=== PATIENT | female | born 1980 | race Caucasian/White ===

== ENCOUNTER 2017-12-23 06:08 | Inpatient (IN) ==
[2017-12-23] MEDS ORDERED: LIDOCAINE 1% (10mg/ml) 2mL INJ PF SDV ID PRN (16:05)
[2017-12-23] MEDS ORDERED: CARBOPROST 250 MCG/ML INJECTION IM PRN (16:05)
[2017-12-23] MEDS ORDERED: SALINE FLUSH 10ml SYRINGE IV PRN ×2 (16:05→17:50)
[2017-12-23] MEDS ORDERED: METHYLERGONOVINE 0.2 MG/ML INJECTION IM PRN (16:05)
[2017-12-23] MEDS ORDERED: CALCIUM CARBONATE Chewable 500mg TABLET PO PRN (16:05)
[2017-12-23] MEDS ORDERED: ACETAMINOPHEN 500 MG TABLET PO PRN (16:05)
[2017-12-23] MEDS ORDERED: MAG-AL + SIM ORAL LIQUID 30ml PO PRN (16:05)
[2017-12-23] MEDS ORDERED: INSULIN NPH/ASPART 70/30 MIX INJECTION SQ SCH (17:30)
[2017-12-23] MEDS ORDERED: DINOPROSTONE 10 MG VAGINAL INSERT VG ONE ×2 (17:33→17:50)
[2017-12-23 17:49] VITALS: BMI 32.6
[2017-12-23] MEDS ORDERED: TERBUTALINE 1 MG/ML VIAL SQ PRN (17:50)
[2017-12-23] MEDS ORDERED: ZOLPIDEM 10 MG TABLET PO PRN (17:53)
[2017-12-23] MEDS: METFORMIN 1,000 MG TABLET PO SCH (19:12)
[2017-12-24] MEDS ORDERED: CARBOPROST 250 MCG/ML INJECTION IM PRN (05:46)
[2017-12-24] MEDS ORDERED: OXYTOCIN DRIP 30 UNIT/500 ML ML IV PRN (05:46)
[2017-12-24] MEDS ORDERED: ACETAMINOPHEN 500 MG TABLET PO PRN ×2 (05:46→21:04)
[2017-12-24] MEDS ORDERED: CALCIUM CARBONATE Chewable 500mg TABLET PO PRN ×2 (05:46→21:04)
[2017-12-24] MEDS ORDERED: LIDOCAINE 1% (10mg/ml) 2mL INJ PF SDV ID PRN (05:46)
[2017-12-24] MEDS ORDERED: MAG-AL + SIM ORAL LIQUID 30ml PO PRN (05:46)
[2017-12-24] MEDS ORDERED: D5LR 1,000 ML IV PRN (05:46)
[2017-12-24] MEDS ORDERED: LR 1,000 ML IV PRN (05:46)
[2017-12-24] MEDS ORDERED: METHYLERGONOVINE 0.2 MG/ML INJECTION IM PRN (05:46)
[2017-12-24] MEDS ORDERED: AMPICILLIN 2 GM in NS 100 ML IV ONE (06:00)
[2017-12-24] MEDS: D5LR 1,000 ML IV SCH ×2 (06:22→17:59)
[2017-12-24] MEDS: LR 1,000 ML IV PRN ×3 (06:23→18:35)
[2017-12-24] MEDS ORDERED: INSULIN NPH/ASPART 70/30 MIX INJECTION SQ SCH (08:00)
[2017-12-24] MEDS: METFORMIN 1,000 MG TABLET PO SCH ×3 (08:34→23:07)
[2017-12-24] MEDS ORDERED: ROPIVACAINE 1% 10MG/ML INJ 200 MG, SUFentanil 50 MCG in NS 80 ML EPI ONE (11:00)
--- NOTE | 2017-12-24 11:21 | Anesthesia Preoperative Report ---
Anesthesia Epidural/Spinal Rec - Date and Time Date: 12/24/17 Procedure: Labor Epidural Plan: Epidural (pt unsure if wants epidural at this time) - Vital Signs Vital Signs: Temperature 98.0 F 12/23/17 23:25 Pulse Rate 68 12/23/17 23:25 Respiratory Rate 18 12/23/17 23:25 Blood Pressure 132/68 12/23/17 23:25 /Para: P:0 - Medictaions & Allergies Inpatient Medications: Current Medications Acetaminophen (Tylenol) 500 - 1,000 mg PO Q4H PRN PRN Reason: Pain Acetaminophen (Tylenol) 500 - 1,000 mg PO Q4H PRN PRN Reason: Pain Al Hydroxide/Mg Hydroxide (Maalox Plus) 30 ml PO Q3H PRN PRN Reason: Indigestion Al Hydroxide/Mg Hydroxide (Maalox Plus) 30 ml PO Q3H PRN PRN Reason: Indigestion Calcium Carbonate (Tums) 500 - 1,000 mg PO Q2H PRN PRN Reason: Indigestion Calcium Carbonate (Tums) 500 - 1,000 mg PO Q2H PRN PRN Reason: Indigestion Carboprost Tromethamine (Hemabate) 250 mcg IM O PRN PRN Reason: .Downtime Carboprost Tromethamine (Hemabate) 250 mcg IM O PRN PRN Reason: .Downtime Diphenhydramine HCl (Benadryl) 50 mg PO HS PRN PRN Reason: Sleep Last Admin: 12/23/17 23:41 Dose: 50 mg Lactated Ringer's (Lactated Ringers) 1,000 mls @ 999 mls/hr IV .Q1H1M PRN Last Admin: 12/24/17 06:23 Dose: 999 mls/hr Ampicillin Sodium 1 gm/ Sodium (Chloride) 50 mls @ 200 mls/hr IV Q4H [facility] Dextrose/Lactated Ringer's (Dextrose 5%-Lactated Ringers) 1,000 mls @ 125 mls/ hr IV .Q8H PRN PRN Reason: Labor Dextrose/Lactated Ringer's (Dextrose 5%-Lactated Ringers) 1,000 mls @ 125 mls/ hr IV .Q8H M[facility]A Last Admin: 12/24/17 06:22 Dose: 125 mls/hr Lactated Ringer's (Lactated Ringers) 1,000 mls @ 999 mls/hr IV .Q1H1M PRN Oxytocin (Pitocin Drip) 30 unit in 500 mls @ 2 mls/hr IV .Q24H PRN; Protocol PRN Reason: Induction/Augmentation Last Admin: 12/24/17 06:22 Dose: 2 mls/hr Insulin Aspart (Novolog Mix 70-30) 21 unit SQ WB [facility] Insulin Aspart (Novolog Mix 70-30) 27 unit SQ WS [facility] Last Admin: 12/23/17 19:13 Dose: 27 unit Lidocaine HCl (Xylocaine-Mpf 1% Vial) 0.2 mg ID O PRN PRN Reason: IV Start Lidocaine HCl (Xylocaine-Mpf 1% Vial) 0.2 mg ID O PRN PRN Reason: IV Start Metformin HCl (Glucophage) 1,000 mg PO BIDWM [facility]A Last Admin: 12/24/17 08:34 Dose: 1,000 mg Methylergonovine Maleate (Methergine) 0.2 mg IM O PRN Methylergonovine Maleate (Methergine) 0.2 mg IM O PRN Misoprostol (Cytotec) 800 mcg [place] ONCE PRN Misoprostol (Cytotec) 800 mcg [place] ONCE PRN Sodium Chloride (Iv Flush) 10 - 80 ml IV PRN PRN PRN Reason: Flushing Sodium Chloride (Iv Flush) 10 - 80 ml IV PRN PRN PRN Reason: Flushing Terbutaline Sulfate (Brethine) 0.25 mg SQ PRN PRN Zolpidem Tartrate (Ambien) 10 mg PO HS PRN PRN Reason: Insomnia Allergies/Adverse Reactions: Allergies Allergy/AdvReac Type Severity Reaction Status Date / Time No Known Allergies Allergy Verified 12/13/17 15:32 - Home Medications Home Medications: Home Medications Medication Instructions Recorded Confirmed Type tab PO .qd tab 05/13/17 12/13/17 History vitamin,calcium,xcliooxj-clvc-qymdh acid tablet Celexa (citalopram) 20 mg tablet 20 mg PO DAILY tab 05/28/17 12/13/17 History - Medical History Respiratory: DENIES: Asthma, Sleep Apnea Cardiovascular: DENIES: Angina, Hypertension Gastrointestional: Reports: Gastroesophageal Reflux Disease Neuro/Musculoskeletal: Reports: Depression (taking celexa) Renal/Endocrine: Reports: Diabetes Mellitus Type 2 (since 2016), Thyroid Disease Other History: Reports: Now - Surgical History Musculoskeletal Surgery/Tx: Reports: Carpal Tunnel Release (right hand) Reproductive Surgery/Treatment: DENIES: Section Anesthesia Reactions: None Hx Family Anesthesia Reaction: No History of Motion Sickness: No - Social History Smoking Status: Never smoker Second Hand Exposure: No Substance Use Type: does not use Alcohol Intake Frequency: does not drink - Pertinent Findings Lab Data: CBC and BMP 12/23/17 16:31 EKG Rhythm: Normal Sinus Rhythm - Physical Exam Respiratory Exam: lungs clear, bilateral breath sounds equal Cardiovascular Exam: regular rate and rhythm - Airway Assessment Mallampati Score: II TMD: 2 Fingerbreadths Neck Extension: good Overall Assessment: may be difficult mask vent, may be difficult intubation - ASA ASA Score: 3 - Discussion Discussion: Discussed risks/options/alternatives of anesthesia and questions answered. Patient consents. Nursing pain assessment noted. Anesthesia Discussion: family member Attestation Statement: Prior to the delivery of any anesthetic medication, I examined the patient, developed the plan, obtained the patient's consent and discussed the risk and benefits of the procedure with the patient/guardian.
[2017-12-24] MEDS: AMPICILLIN 1 GM in NS 50 ML IV SCH ×3 (11:50→19:00)
[2017-12-24] MEDS ORDERED: NALOXONE 0.4 MG/ML INJECTION IVP PRN (14:06)
[2017-12-24] MEDS ORDERED: ONDANSETRON 4 MG/2 ML INJECTION IVP PRN ×2 (14:06→21:28)
[2017-12-24] MEDS ORDERED: DiphenhydrAMINE 50 MG/ML INJECTION IVP PRN (14:06)
[2017-12-24] MEDS ORDERED: ROPIVACAINE 1% 10MG/ML INJ 200 MG, SUFentanil 50 MCG in NS 100 ML EPI PRN (14:06)
--- NOTE | 2017-12-24 14:29 | Consultation ---
DATE OF CONSULT 12/24/2017 DATE OF ADMISSION 12/23/2017 REASON FOR CONSULTATION Diabetes mellitus. HISTORY OF PRESENT ILLNESS The patient is a 37-year-old female who has been followed for type 2 diabetes mellitus in . She was admitted for placement of Cervidil and is scheduled for induction of labor on the day of consult. For the several weeks prior to hospitalization her diabetes has been kept under good control which has required the addition of insulin to the metformin she was taking prior to . However, it is noted that the metformin did not have her in a good control before . She had been titrated up to a dose of 21 units q. a.m. and 27 units q.p.m. of 70/30 mixed insulin in addition to metformin having been titrated up from 500 mg daily to 1000 mg twice daily. Her admission glucose was 94 and after supper it was 72. Fasting glucose at the time of my visit was 60 and she had been given a light breakfast to eat with no insulin. ALLERGIES None known. PAST MEDICAL HISTORY Remarkable for thyroid cyst, anxiety, obesity, type 2 diabetes mellitus and depression. FAMILY HISTORY Positive for diabetes, hypertension. SOCIAL HISTORY The patient does not smoke tobacco or drink alcohol. She has not used illicit drugs. REVIEW OF SYSTEMS Remarkable for weight gain during and pedal edema. PHYSICAL EXAM Afebrile. Blood pressure 132/68. Pulse 68. Respirations 18. GENERAL: Well-developed, well-nourished, female, alert, oriented and in no acute distress. HEENT: Atraumatic, normocephalic. EYES: PERRL. NECK: Without thyromegaly or lymphadenopathy. LUNGS: Clear. HEART: Regular rate and rhythm. ABDOMEN: Protuberant with . Bowel sounds normal. EXTREMITIES: Show 1+ lower leg edema. Radial and dorsalis pedis pulses are 2+ symmetrically. She has stitches in her left thumb from a laceration sustained 1 week ago. LABS Hemoglobin 12.4, hematocrit 38%. ASSESSMENT 1. Type 2 diabetes mellitus, controlled. 2. Long-term current use of insulin. 3. . RECOMMENDATIONS The patient's insulin will be held and metformin will be continued. We will follow her glucose q. 4 hours through labor and then check . If necessary, insulin will be resumed. Thank you very much for asking my assistance in caring for this nice young lady. I will follow her with you while she remains in the hospital. JOSE
[2017-12-24] MEDS ORDERED: CITALOPRAM 20 MG TABLET PO SCH (19:00)
[2017-12-24] MEDS ORDERED: CITRIC ACID/SODIUM CITRATE 30ml PO ONE (19:34)
[2017-12-24] MEDS ORDERED: FAMOTIDINE PB 20 MG/50 ML BAG IV ONE (19:34)
[2017-12-24] MEDS ORDERED: CEFAZOLIN PREMIX (MC ONLY) 2 GM/50 ML BAG IV ONE (19:34)
[2017-12-24] MEDS ORDERED: NOZIN NASAL SWAB NAS ONE ×2 (19:34)
[2017-12-24] MEDS ORDERED: AZITHROMYCIN IV 500 MG in NS 250ml 250 ML IV ONE (19:34)
[2017-12-24] MEDS ORDERED: ONDANSETRON 4 MG/2 ML INJECTION ONE (20:00)
[2017-12-24] MEDS ORDERED: MORPHINE SULFATE PF 5mg/10ml INJ (Duramorph) ONE (20:41)
[2017-12-24] MEDS ORDERED: TRANEXAMIC ACID 1,000 MG in NS 100 ML IV ONE (20:46)
[2017-12-24] MEDS ORDERED: OXYTOCIN BOLUS BAG 30 UNIT/500 ML ML IV SCH (21:00)
[2017-12-24] MEDS ORDERED: HYDROCORTISONE 2.5% CREAM 30gm RECTALLY PRN (21:04)
[2017-12-24] MEDS ORDERED: DiphenhydrAMINE 25 MG CAPSULE PO PRN (21:04)
[2017-12-24] MEDS ORDERED: SIMETHICONE 80 MG CHEWABLE TABLET PO PRN (21:04)
[2017-12-24] MEDS ORDERED: OXYTOCIN DRIP 30 UNIT/500 ML ML IV SCH (21:15)
[2017-12-24] MEDS ORDERED: D5LR 1,000 ML IV SCH (21:15)
[2017-12-24] MEDS ORDERED: NALBUPHINE 10 MG/ML INJECTION IVP PRN (21:28)
[2017-12-24] MEDS ORDERED: NALOXONE 2 MG/2 ML INJECTION PFS IVP PRN (21:28)
--- NOTE | 2017-12-24 21:28 | Anesthesia Postoperative Note ---
- Date and Time Date: 12/24/17 Time: 21:28 - Status Patient Participated in Evaluation: Patient Participated in Person Vital Signs: Temperature 98.0 F 12/23/17 23:25 Pulse Rate 68 12/23/17 23:25 Respiratory Rate 18 12/23/17 23:25 Blood Pressure 132/68 12/23/17 23:25 Respiratory Function: Airway Patent Cardiovascular Function: Regular Pulse EKG: Sinus Rhythm Mental Status: Alert and Oriented Pain Intensity: 0 Hydration: IV Infusing Complications During Recover: None Apparent - Follow-Up Instructions Instructions: Per Surgeon
[2017-12-24] MEDS ORDERED: NOZIN NASAL SWAB NAS SCH (22:00)
[2017-12-24] MEDS: IBUPROFEN 800 MG TABLET PO PRN (22:17)
[2017-12-25] MEDS: HYDROCODONE/APAP 5mg/325mg TABLET PO PRN ×4 (04:11→23:35)
--- NOTE | 2017-12-25 07:46 | OB/GYN Progress Note ---
OB-PP Progress Note - General PPD1 POD:: POD1 Maternal Group B Strep: Positive Maternal blood type: O+ Maternal Rubella Status: Immune - Subjective Date: 12/25/17 Lochia: Minimal Pain: controlled Voiding: reyes still in place Nausea or Vomiting Present: No - Objective Vital Signs: Last Vital Signs Temp 98.0 F 12/25/17 01:08 Pulse 51 L 12/25/17 01:08 Resp 18 12/25/17 01:08 BP 120/66 12/25/17 01:08 Pulse Ox 100 12/25/17 01:08 Urine Output: good General: alert and oriented Respiratory: non-labored Abdomen: fundus firm, non-tender Incision: clean, dry, dressed Extremities: non-tender Edema: none Laboratory: Laboratory Results - last 24 hr 12/24/17 12/24/17 12/24/17 11:30 18:03 21:39 WBC RBC Hgb Hct MCV MCH MCHC RDW Std Deviation Plt Count MPV Glucometer 76 82 120 12/25/17 06:35 WBC 12.9 H RBC 3.62 L Hgb 11.5 L Hct 34.5 L MCV 95.3 MCH 31.8 MCHC 33.3 RDW Std Deviation 43.5 Plt Count 174 MPV 10.9 Glucometer - Assessment Assessment: SP, Primary C/S - Plan Plan: routine care
[2017-12-25] MEDS: METFORMIN 1,000 MG TABLET PO SCH ×2 (08:56→18:56)
[2017-12-25] MEDS: IBUPROFEN 800 MG TABLET PO PRN ×2 (09:22→18:20)
[2017-12-25] MEDS: DOCUSATE CALCIUM 240 MG CAPSULE PO SCH (09:23)
[2017-12-25] MEDS: SIMETHICONE 80 MG CHEWABLE TABLET PO SCH ×4 (09:24→23:34)
--- NOTE | 2017-12-25 14:58 | Operative Note ---
DATE OF SURGERY 12/24/2017 PREOPERATIVE DIAGNOSES 1. 37-year-old 1 at 38 weeks 6 days gestational age. 2. Arrest of descent. 3. Type II pregestational diabetes. POSTOPERATIVE DIAGNOSES 1. 37-year-old 1 at 38 weeks 6 days gestational age. 2. Arrest of descent. 3. Type II pregestational diabetes. PROCEDURE Primary low transverse section. SURGEON Dr. Brianne Cifuentes PINMAKER Dr. Kj Chacko. ANESTHESIA Epidural by Theo Barrera CRNA COMPLICATIONS None. EBL 800 mL. FINDINGS Viable female infant, cephalic OP position, clear fluids, Apgars 7/9, weight 3948 g, name "Nate." Normal-appearing uterus, tubes and ovaries. INDICATIONS Tammy was brought in the evening of 12/23/2017 for Cervidil cervical ripening due to her diabetes. The next morning she was started on Pitocin. Her membranes were ruptured artificially, returning clear fluids. She received an epidural. She progressed nicely onto complete. She pushed for approximately 30 minutes. We needed to do another so I had her labor down for an hour. She then pushed for another two and a half hours with only descent from the +2 to +3 station. The vulvar tissue was becoming very edematous and the caput on the baby's head was enlarging. Due to her diabetes, I told her I would not do an assisted vaginal delivery due to the risk of shoulder dystocia. She agreed to a . NARRATIVE OF PROCEDURE The patient was taken to the operating room where her epidural was brought up to adequate surgical levels. Since she had pushed for three hours, we put her in the lithotomy position with a leftward tilt so we would have access to push up from below if needed. She already had a Pitt catheter in place. She was prepared and draped in the normal sterile fashion. A Pfannenstiel skin incision was made and carried down to the fascia. The fascia was incised in the midline and extended laterally with the Plata scissors. The fascia was elevated and the underlying rectus muscles were dissected off. The peritoneum was entered bluntly and this was extended superiorly and inferiorly with good visualization of the bladder. The bladder blade was inserted. A bladder flap was created sharply and the bladder blade was reinserted. The lower uterine segment was incised in a transverse fashion layer by layer with the scalpel and bluntly extended. The infant's head was deeply wedged in the pelvis. I had one of the nurses push up on the head from down below. The infant's head was delivered atraumatically. The nose and mouth were suctioned. The cord was clamped and cut. The infant was handed to Dr. Moreno who was asked to attend due to the patient's diabetes. The placenta delivered spontaneously. There was a small extension of the uterine incision on the right side. The uterus was closed with running locked 0-Monocryl. A second layer was placed to imbricate the incision. The serosal edges were cauterized as needed for hemostasis. The bladder flap was closed with running 3-0 Vicryl. The uterus was returned to the abdomen. The gutters were cleared of all clots and debris. The uterine incision was inspected one final time and still noted to be hemostatic. The peritoneum was closed with running 2-0 chromic. Hemostasis was obtained in the rectus muscles with cautery. The fascia was closed with running 0-Vicryl. Hemostasis was obtained in the subcutaneous tissue with cautery. Keiry's fascia was closed with running 2-0 chromic. The skin was closed with 4-0 Vicryl in a subcuticular manner. Dermabond was placed. Sponge, sharp and instrument counts were correct. The patient tolerated the procedure well and was taken to the recovery room in good condition. JOSE
[2017-12-26] MEDS: IBUPROFEN 800 MG TABLET PO PRN ×3 (06:34→21:56)
[2017-12-26] MEDS: HYDROCODONE/APAP 5mg/325mg TABLET PO PRN ×4 (06:34→21:57)
[2017-12-26] MEDS: DOCUSATE CALCIUM 240 MG CAPSULE PO SCH (09:05)
[2017-12-26] MEDS: METFORMIN 1,000 MG TABLET PO SCH ×2 (09:05→18:23)
[2017-12-26] MEDS: SIMETHICONE 80 MG CHEWABLE TABLET PO SCH ×4 (09:06→21:55)
--- NOTE | 2017-12-26 11:50 | OB/GYN Progress Note ---
OB-PP Progress Note - General PPD2 POD:: POD2 Maternal Group B Strep: Positive Maternal blood type: O+ Maternal Rubella Status: Immune - Subjective Date: 12/26/17 Lochia: Minimal Pain: controlled Voiding: voiding Nausea or Vomiting Present: No - Objective Vital Signs: Last Vital Signs Temp 98.5 F 12/26/17 08:45 Pulse 75 12/26/17 08:45 Resp 16 12/26/17 08:45 BP 132/67 12/26/17 08:45 Pulse Ox 98 12/26/17 08:45 Urine Output: good General: alert and oriented Cardiovascular: regular rate,rhythm Respiratory: non-labored Abdomen: fundus firm, non-tender Incision: normal, clean, dry, intact Extremities: non-tender Edema: none Laboratory: Laboratory Results - last 24 hr 12/25/17 12/25/17 12/26/17 15:08 21:10 06:38 Glucometer 107 94 64 12/26/17 11:09 Glucometer 130 - Assessment Assessment: SP, Primary C/S - Plan Plan: routine care
[2017-12-27] MEDS: HYDROCODONE/APAP 5mg/325mg TABLET PO PRN (03:40)
[2017-12-27 03:44] VITALS: RESP 16; O2SAT 100
--- NOTE | 2017-12-27 07:49 | Endocrinology Progress Note ---
Subjective Principal diagnosis: Type 2 diabetes mellitus Interval history: Feels well. Good appetite. Plans on going home today. Exam Vital signs: Temperature 97.7 F 12/27/17 03:30 Pulse Rate 76 12/27/17 03:30 Respiratory Rate 16 12/27/17 03:30 Blood Pressure 132/72 12/27/17 03:30 Pulse Oximetry 100 12/27/17 03:30 - Constitutional no acute distress - Routine HEENT Exam Head: Present: normocephalic, atraumatic Eye: Present: PERRL ENT: Present: mucous membranes moist - Routine Neck Exam Absent: thyromegaly - Routine Respiratory Exam Absent: dyspnea - Routine Cardiovascular Exam Present: RRR - Routine Abdominal Exam Present: normoactive bowel sounds - Routine Extremities Exam Absent: edema - Routine Skin Exam Present: dry, warm - Routine Neurological Exam Present: alert, oriented X3 - Routine Psychiatric Exam Present: normal affect, normal thought process, good insight, good judgment - Additional findings Additional findings: Laboratory Tests 12/26/17 12/26/17 12/26/17 06:38 11:09 15:37 Glucometer 64 130 91 12/26/17 12/27/17 20:35 07:12 Glucometer 93 83 - Urinary Catheter Management 2-way Urethral Cath placed during this visit: yes, but has since been removed by the nurse Insertion date: 12/24/17 Insertion time: 13:45 Removal date: 12/25/17 Removal time: 13:00 Assessment and Plan (1) Controlled diabetes mellitus type II without complication Current visit: Yes Status: Chronic Remains in good control on metformin alone without insulin . May continue same at home. Followup in office per routine. (2) Multinodular goiter (nontoxic) Problem details: Nodules remain nonpalpable . Clinically and chemically euthyroid. Current visit: No Status: Chronic
--- NOTE | 2017-12-27 08:27 | OB/GYN Progress Note ---
OB-PP Progress Note - General PPD3 POD:: POD3 Maternal Group B Strep: Positive Maternal blood type: O+ Maternal Rubella Status: Immune - Subjective Date: 12/27/17 Lochia: Moderate Pain: controlled Voiding: voiding Nausea or Vomiting Present: No - Objective Vital Signs: Last Vital Signs Temp 97.7 F 12/27/17 03:30 Pulse 76 12/27/17 03:30 Resp 16 12/27/17 03:30 BP 132/72 12/27/17 03:30 Pulse Ox 100 12/27/17 03:30 General: alert and oriented Respiratory: non-labored Abdomen: fundus firm Incision: normal, clean, no erythema, dry Extremities: non-tender Side: bilateral Site: ankle Edema Degree: 1+ Laboratory: Laboratory Results - last 24 hr 12/26/17 12/26/17 12/26/17 11:09 15:37 20:35 Glucometer 130 91 93 12/27/17 07:12 Glucometer 83 - Assessment Assessment: SP, Primary C/S - Plan Plan: routine care, discharge home Expected date of discharge: 12/27/17
[2017-12-27] MEDS: IBUPROFEN 800 MG TABLET PO PRN (09:01)
[2017-12-27] MEDS: DOCUSATE CALCIUM 240 MG CAPSULE PO SCH (09:02)
[2017-12-27] MEDS: METFORMIN 1,000 MG TABLET PO SCH (09:02)
[2017-12-27] MEDS: SIMETHICONE 80 MG CHEWABLE TABLET PO SCH (09:02)
[2017-12-27 10:19] VITALS: BP 110/58; PULSE 71; TEMP 98.2
== END 2017-12-27 12:23 | disposition home or self-care (01) | DRG 765 ==
LOC: MC 15:42
PROVIDERS: ADMIT Obstetrics & Gynecology; ATTEND Obstetrics & Gynecology